=== PATIENT | male | born 1965 | race Caucasian/White ===

== ENCOUNTER 2019-02-12 04:09 | Emergency (ER) | payer BC ==
[2019-02-12 04:21] VITALS: BP 179/94; PULSE 46; TEMP 97.6; BMI 30.1
[2019-02-12] MEDS ORDERED: ONDANSETRON 4 MG/2 ML VIAL IVPB ONE (04:25)
[2019-02-12] MEDS ORDERED: KETOROLAC TROMETHAMINE 30 MG/1 ML VIAL IVPUSH ONE (04:25)
[2019-02-12] MEDS ORDERED: SODIUM CHLORIDE 1,000 ML IV ONE ×2 (04:25→05:04)
[2019-02-12] MEDS ORDERED: morphine SULFATE 4 MG/ML VIAL IVPUSH ONE (04:25)
[2019-02-12] MEDS ORDERED: morphine CARPU-JECT 4 MG/1 ML DISP.SYRIN IVPUSH ONE (04:25)
--- NOTE | 2019-02-12 04:26 | PDOC ---
History of Present Illness - General Chief Complaint: Pain, Acute Stated Complaint: RT FLANK PAIN Time Seen by Provider: 02/12/19 04:24 History Source: Patient Exam Limitations: No Limitations - History of Present Illness Initial Comments: 02/12/19 04:35 This is a 53-year-old male who comes in complaining of left flank pain since this morning. Patient however said the pain has gotten much worse and he is not vomiting his medication so unable to manage the pain. Patient has a history of kidney stones and had lithotripsy done yesterday on the left side. Patient denies any fevers or chills. Patient took Percocet without relief. Allergies: as per nursing notes Past Medical History kidney stones Social history: Lives with family. No smoking. No alcohol. No illicit drugs. Surgical history: None General: No fevers or chills, no weakness, no weight loss HEENT: No change in vision. No sore throat,. No ear pain CardioVascular: no chest discomfort. No shortness of breath Respiratory:No cough, or wheezing. Gastrointestinal: no nausea, vomiting, diarrhea or constipation, No rectal bleeding Genitourinary: No dysuria, hematuria, or frequency Musculoskeletal: No joint or muscle pain or swelling Neurologic: No headache, vertigo, dizziness or loss of consciousness Psychiatric: nor depression Skin: No rashes or easy bruising Endocrine: no increased thirst or abnormal weight change Allergic: no skin or latex allergy All other systems reviewed and normal GENERAL: The patient is awake, alert, and fully oriented, in moderate distress with pain HEAD: Normal with no signs of trauma. EYES: Pupils equal, round and reactive to light, extraocular movements intact, sclera anicteric, conjunctiva clear. EXTREMITIES:atraumatic, Normal range of motion, no edema. Back/Flank: There is tenderness on palpation left flank NEUROLOGICAL: Normal speech, normal gait. PSYCH: Normal mood, normal affect. SKIN: Warm, Dry, normal turgor, no rashes or lesions noted. Assessment and plan: This is a 53-year-old male who comes in with left flank pain times today. Patient had lithotripsy done yesterday. An IV was placed and patient was given IV fluids and pain medications Past History - Past Medical History Allergies/Adverse Reactions: Allergies Allergy/AdvReac Type Severity Reaction Status Date / Time CONTRAST DYE Allergy Uncoded 02/12/19 04:22 Home Medications: Ambulatory Orders Ondansetron [Zofran *Odt*] 8 mg SL TID #12 od.tablet 02/12/19 Oxycodone HCl/Acetaminophen [Oxycodone-Acetaminophen 5-325] 1 each PO Q4HWA PRN 02/12/19 COPD: No Kidney Stones: Yes - Suicide/Smoking/Psychosocial Hx Smoking History: Never smoked *Physical Exam - Vital Signs Last Vital Signs Temp Pulse Resp BP Pulse Ox 97.6 F 46 L 18 179/94 H 98 02/12/19 04:10 02/12/19 04:10 02/12/19 04:10 02/12/19 04:10 02/12/19 04:10 *DC/Admit/Observation/Transfer Diagnosis at time of Disposition: Kidney stone on left side - Discharge Dispostion Disposition: HOME Condition at time of disposition: Stable Decision to Admit order: No - Prescriptions Prescriptions: Ondansetron [Zofran *Odt*] 8 mg SL TID #12 od.tablet - Referrals Referrals: ON STAFF,NOT [Primary Care Provider] - - Patient Instructions Additional Instructions: Continue to try to stay well-hydrated Take the Percocet for pain. Take Zofran for nausea as often as every 6-8 hours if needed to send a prescription to the pharmacy for Zofran Return to the emergency department immediately with ANY new, persistent or worsening symptoms. Continue any medications as previously prescribed by your physician. You should follow up with your primary doctor as soon as possible regarding today's emergency department visit. . Please make sure your doctor reviews the results of your emergency evaluation. Thank you for coming to the Emergency Department today for your care. It was a pleasure to see you today. Please note that your evaluation is INCOMPLETE until you follow-up with your doctor. - Post Discharge Activity
[2019-02-12] MEDS ORDERED: morphine SULFATE 4 MG/ML VIAL ONE (04:32)
== END 2019-02-12 05:27 | disposition home or self-care (01) ==
LOC: FER 04:09
PROC: 3E0333Z Introduction of Anti-inflammatory into Peripheral Vein, Percutaneous Approach (ICD-10-PCS; principal; 2019-02-12)
PROC: 3E033NZ Introduction of Analgesics, Hypnotics, Sedatives into Peripheral Vein, Percutaneous Approach (ICD-10-PCS; 2019-02-12)
PROC: 3E033GC Introduction of Other Therapeutic Substance into Peripheral Vein, Percutaneous Approach (ICD-10-PCS; 2019-02-12)
PROC: 3E0337Z Introduction of Electrolytic and Water Balance Substance into Peripheral Vein, Percutaneous Approach (ICD-10-PCS; 2019-02-12)
DX: N20.0 Calculus of kidney (principal)
CPT/HCPCS: 99282-25; J7030